=== PATIENT | male | born 1995 | race American Indian/Alaskan Native ===

== ENCOUNTER 2020-01-02 10:56 | Emergency (ER) | payer SELFPAY ==
[2020-01-02 11:14] VITALS: BP 130/83
[2020-01-02] MEDS ORDERED: ONDANSETRON 4 MG ODT TAB PO ONE (12:54)
[2020-01-02] MEDS ORDERED: HYOSCYAMINE SUBL 0.125 MG TAB SL ONE (12:54)
[2020-01-02] MEDS ORDERED: ALUM-MAG HYDROXIDE-SIMETHICONE 200-200-20MG/5ML ORAL LIQD 30 ML PO ONE (12:54)
[2020-01-02] MEDS ORDERED: FAMOTIDINE 20 MG TAB PO ONE (12:55)
[2020-01-02 13:42] LABS: Basophils % (Auto) 0.3 % (0.0-1.8); Eosinophils # (Auto) 0.1 K/mm3 (0.0-0.4); Hemoglobin 18.9 gm/dl (11.8-15.2); Lymphocytes # (Auto) 1.4 K/mm3 (1.2-5.4); Mean Corpuscular HGB Conc 34 % (32-34); Mean Corpuscular Volume 82 fl (84-94); Monocytes # (Auto) 0.5 K/mm3 (0.0-0.8); Monocytes % (Auto) 7.6 % (0.0-7.3); Platelet Count 217 K/mm3 (140-440); Red Cell Distribution Width 14.4 % (13.2-15.2)
[2020-01-02 13:52] LABS: Bilirubin,Urine NEG (Negative); Blood,Urine NEG (Negative); Color,Urine Yellow (Yellow); Mucus,Urine FEW /HPF; Protein,Urine <15 mg/dL mg/dL (Negative); Urobilinogen,Urine < 2.0 mg/dL (<2.0)
[2020-01-02 14:02] LABS: Amphetamine Screen,Urine Negative; Benzodiazepines Screen,Urine Negative; Cocaine Screen,Urine Negative; Methadone Screen,Urine Negative; Opiate Screen,Urine Negative
[2020-01-02 14:02] LABS: Alanine Aminotransferase 34 units/L (7-56); Albumin 4.8 g/dL (3.9-5); BUN/Creatinine Ratio 10; Blood Urea Nitrogen 9 mg/dL (9-20); Calcium 10.2 mg/dL (8.4-10.2); Hemolysis Index 23
--- NOTE | 2020-01-02 14:25 | Emergency Department Report ---
ED General Adult HPI - General Chief complaint: Medical Clearance Stated complaint: FEELING ILL/ABD Time Seen by Provider: 01/02/20 12:19 Source: patient Mode of arrival: Ambulatory Limitations: No Limitations - History of Present Illness Initial comments: Patient is a 24-year-old male who presents emergency room with complaints of upper abdominal discomfort that began 2 nights ago after he reports he took 2 pills of ecstasy. He states that that night after he took the ecstasy pills he began having rapid heartbeat vomiting and upper abdominal discomfort. He states that the rapid heartbeat and vomiting has since resolved. He states that he still just having some upper abdominal discomfort. He denies taking the pills in order to harm himself. He denies any SI, HI, hallucinations. He denies any diarrhea, fever, hematochezia, hematemesis, melena. He states he is having normal bowel movements. He denies any past medical history or allergies to medications. He endorses alcohol use and marijuana use and tobacco use. - Related Data Previous Rx's Medication Instructions Recorded Last Taken Type Famotidine [Pepcid] 40 mg PO QHS #30 tablet 01/02/20 Unknown Rx Mag Hydrox/Aluminum Hyd/Simeth 15 ml PO Q8HR #1 oral.susp 01/02/20 Unknown Rx [Maalox Advanced Suspension] Allergies Allergy/AdvReac Type Severity Reaction Status Date / Time No Known Allergies Allergy Unverified 01/02/20 11:13 ED Review of Systems ROS: Stated complaint: FEELING ILL/ABD Other details as noted in HPI Comment: All other systems reviewed and negative ED Past Medical Hx - Past Medical History Previous Medical History?: No - Surgical History Past Surgical History?: No - Social History Smoking Status: Current Every Day Smoker Substance Use Type: Alcohol - Medications Home Medications: Home Medications Medication Instructions Recorded Confirmed Last Taken Type Famotidine [Pepcid] 40 mg PO QHS #30 tablet 01/02/20 Unknown Rx Mag Hydrox/Aluminum Hyd/Simeth 15 ml PO Q8HR #1 oral.susp 01/02/20 Unknown Rx [Maalox Advanced Suspension] ED Physical Exam - General Limitations: No Limitations General appearance: alert, in no apparent distress - Head Head exam: Present: atraumatic, normocephalic - Eye Eye exam: Present: normal appearance - ENT ENT exam: Present: mucous membranes moist - Respiratory Respiratory exam: Present: normal lung sounds bilaterally. Absent: respiratory distress, wheezes, rales, rhonchi, stridor, chest wall tenderness, accessory muscle use, decreased breath sounds, prolonged expiratory - Cardiovascular Cardiovascular Exam: Present: regular rate, normal rhythm, normal heart sounds. Absent: systolic murmur, diastolic murmur, rubs, gallop - GI/Abdominal GI/Abdominal exam: Present: soft, normal bowel sounds. Absent: distended, tenderness, guarding, rebound, rigid - Neurological Exam Neurological exam: Present: alert, oriented X3 - Psychiatric Psychiatric exam: Present: normal affect, normal mood - Skin Skin exam: Present: warm, dry, intact ED Course Vital Signs 01/02/20 11:13 Temperature 72 F L Pulse Rate 82 Respiratory 18 Rate Blood Pressure 130/83 [Right] O2 Sat by Pulse 98 Oximetry ED Medical Decision Making - Lab Data Result diagrams: 01/02/20 13:07 01/02/20 13:07 Lab Results 01/02/20 01/02/20 01/02/20 Range/Units 13:07 13:07 13:07 WBC 6.2 (4.5-11.0) K/mm3 RBC 6.80 H (3.65-5.03) M/mm3 Hgb 18.9 H (11.8-15.2) gm/dl Hct 56.0 H (35.5-45.6) % MCV 82 L (84-94) fl MCH 28 (28-32) pg MCHC 34 (32-34) % RDW 14.4 (13.2-15.2) % Plt Count 217 (140-440) K/mm3 Lymph % (Auto) 22.0 (13.4-35.0) % [place] % (Auto) 7.6 H (0.0-7.3) % Eos % (Auto) 1.0 (0.0-4.3) % Baso % (Auto) 0.3 (0.0-1.8) % Lymph # (Auto) 1.4 (1.2-5.4) K/mm3 [place] # (Auto) 0.5 (0.0-0.8) K/mm3 Eos # (Auto) 0.1 (0.0-0.4) K/mm3 Baso # (Auto) 0.0 (0.0-0.1) K/mm3 Seg Neutrophils % 69.1 (40.0-70.0) % Seg Neutrophils # 4.3 (1.8-7.7) K/mm3 Sodium 137 (137-145) mmol/L Potassium 4.5 (3.6-5.0) mmol/L Chloride 96.6 L (98-107) mmol/L Carbon Dioxide 24 (22-30) mmol/L Anion Gap 21 mmol/L BUN 9 (9-20) mg/dL Creatinine 0.9 (0.8-1.3) mg/dL Estimated GFR > 60 ml/min BUN/Creatinine Ratio 10 % Glucose 73 L (75-100) mg/dL Calcium 10.2 (8.4-10.2) mg/dL Total Bilirubin 1.00 (0.1-1.2) mg/dL AST 22 (5-40) units/L ALT 34 (7-56) units/L Alkaline Phosphatase 71 (35-129) units/L Total Protein 8.3 H (6.3-8.2) g/dL Albumin 4.8 (3.9-5) g/dL Albumin/Globulin Ratio 1.4 % Lipase 15 (13-60) units/L Urine Color (Yellow) Urine Turbidity (Clear) Urine pH (5.0-7.0) Ur Specific [place] (1.003-1.030) Urine Protein (Negative) mg/dL Urine Glucose (UA) (Negative) mg/dL Urine Ketones (Negative) mg/dL Urine Blood (Negative) Urine Nitrite (Negative) Urine Bilirubin (Negative) Urine Urobilinogen (<2.0) mg/dL Ur Leukocyte Esterase (Negative) Urine WBC (Auto) (0.0-6.0) /HPF Urine RBC (Auto) (0.0-6.0) /HPF U Epithel Cells (Auto) (0-13.0) /HPF Urine Mucus /HPF Salicylates < 0.3 L (2.8-20.0) mg/dL Urine Opiates Screen Urine Methadone Screen Acetaminophen (10.0-30.0) ug/mL Ur Barbiturates Screen Ur Phencyclidine Scrn Ur Amphetamines Screen U Benzodiazepines Scrn Urine Cocaine Screen U Marijuana (THC) Screen Drugs of Abuse Note Plasma/Serum Alcohol (0-0.07) % 01/02/20 01/02/20 01/02/20 Range/Units 13:07 13:07 13:39 WBC (4.5-11.0) K/mm3 RBC (3.65-5.03) M/mm3 Hgb (11.8-15.2) gm/dl Hct (35.5-45.6) % MCV (84-94) fl MCH (28-32) pg MCHC (32-34) % RDW (13.2-15.2) % Plt Count (140-440) K/mm3 Lymph % (Auto) (13.4-35.0) % [place] % (Auto) (0.0-7.3) % Eos % (Auto) (0.0-4.3) % Baso % (Auto) (0.0-1.8) % Lymph # (Auto) (1.2-5.4) K/mm3 [place] # (Auto) (0.0-0.8) K/mm3 Eos # (Auto) (0.0-0.4) K/mm3 Baso # (Auto) (0.0-0.1) K/mm3 Seg Neutrophils % (40.0-70.0) % Seg Neutrophils # (1.8-7.7) K/mm3 Sodium (137-145) mmol/L Potassium (3.6-5.0) mmol/L Chloride (98-107) mmol/L Carbon Dioxide (22-30) mmol/L Anion Gap mmol/L BUN (9-20) mg/dL Creatinine (0.8-1.3) mg/dL Estimated GFR ml/min BUN/Creatinine Ratio % Glucose (75-100) mg/dL Calcium (8.4-10.2) mg/dL Total Bilirubin (0.1-1.2) mg/dL AST (5-40) units/L ALT (7-56) units/L Alkaline Phosphatase (35-129) units/L Total Protein (6.3-8.2) g/dL Albumin (3.9-5) g/dL Albumin/Globulin Ratio % Lipase (13-60) units/L Urine Color Yellow (Yellow) Urine Turbidity Clear (Clear) Urine pH 7.0 (5.0-7.0) Ur Specific [place] 1.008 (1.003-1.030) Urine Protein <15 mg/dl (Negative) mg/dL Urine Glucose (UA) Neg (Negative) mg/dL Urine Ketones 80 (Negative) mg/dL Urine Blood Neg (Negative) Urine Nitrite Neg (Negative) Urine Bilirubin Neg (Negative) Urine Urobilinogen < 2.0 (<2.0) mg/dL Ur Leukocyte Esterase Mod (Negative) Urine WBC (Auto) 38.0 H (0.0-6.0) /HPF Urine RBC (Auto) 3.0 (0.0-6.0) /HPF U Epithel Cells (Auto) < 1.0 (0-13.0) /HPF Urine Mucus Few /HPF Salicylates (2.8-20.0) mg/dL Urine Opiates Screen Urine Methadone Screen Acetaminophen 5.0 L (10.0-30.0) ug/mL Ur Barbiturates Screen Ur Phencyclidine Scrn Ur Amphetamines Screen U Benzodiazepines Scrn Urine Cocaine Screen U Marijuana (THC) Screen Drugs of Abuse Note Plasma/Serum Alcohol < 0.01 (0-0.07) % 01/02/20 Range/Units 13:39 WBC (4.5-11.0) K/mm3 RBC (3.65-5.03) M/mm3 Hgb (11.8-15.2) gm/dl Hct (35.5-45.6) % MCV (84-94) fl MCH (28-32) pg MCHC (32-34) % RDW (13.2-15.2) % Plt Count (140-440) K/mm3 Lymph % (Auto) (13.4-35.0) % [place] % (Auto) (0.0-7.3) % Eos % (Auto) (0.0-4.3) % Baso % (Auto) (0.0-1.8) % Lymph # (Auto) (1.2-5.4) K/mm3 [place] # (Auto) (0.0-0.8) K/mm3 Eos # (Auto) (0.0-0.4) K/mm3 Baso # (Auto) (0.0-0.1) K/mm3 Seg Neutrophils % (40.0-70.0) % Seg Neutrophils # (1.8-7.7) K/mm3 Sodium (137-145) mmol/L Potassium (3.6-5.0) mmol/L Chloride (98-107) mmol/L Carbon Dioxide (22-30) mmol/L Anion Gap mmol/L BUN (9-20) mg/dL Creatinine (0.8-1.3) mg/dL Estimated GFR ml/min BUN/Creatinine Ratio % Glucose (75-100) mg/dL Calcium (8.4-10.2) mg/dL Total Bilirubin (0.1-1.2) mg/dL AST (5-40) units/L ALT (7-56) units/L Alkaline Phosphatase (35-129) units/L Total Protein (6.3-8.2) g/dL Albumin (3.9-5) g/dL Albumin/Globulin Ratio % Lipase (13-60) units/L Urine Color (Yellow) Urine Turbidity (Clear) Urine pH (5.0-7.0) Ur Specific [place] (1.003-1.030) Urine Protein (Negative) mg/dL Urine Glucose (UA) (Negative) mg/dL Urine Ketones (Negative) mg/dL Urine Blood (Negative) Urine Nitrite (Negative) Urine Bilirubin (Negative) Urine Urobilinogen (<2.0) mg/dL Ur Leukocyte Esterase (Negative) Urine WBC (Auto) (0.0-6.0) /HPF Urine RBC (Auto) (0.0-6.0) /HPF U Epithel Cells (Auto) (0-13.0) /HPF Urine Mucus /HPF Salicylates (2.8-20.0) mg/dL Urine Opiates Screen Negative Urine Methadone Screen Negative Acetaminophen (10.0-30.0) ug/mL Ur Barbiturates Screen Negative Ur Phencyclidine Scrn Negative Ur Amphetamines Screen Negative U Benzodiazepines Scrn Negative Urine Cocaine Screen Negative U Marijuana (THC) Screen Positive Drugs of Abuse Note Disclamer Plasma/Serum Alcohol (0-0.07) % - Medical Decision Making Patient is a 24-year-old male who presents emergency room with complaints of upper abdominal discomfort that began 2 nights ago after he reports he took 2 pills of ecstasy. He states that that night after he took the ecstasy pills he began having rapid heartbeat vomiting and upper abdominal discomfort. He states that the rapid heartbeat and vomiting has since resolved. He states that he still just having some upper abdominal discomfort. He denies taking the pills in order to harm himself. He denies any SI, HI, hallucinations. He denies any diarrhea, fever, hematochezia, hematemesis, melena. He states he is having normal bowel movements. He denies any past medical history or allergies to medications. He endorses alcohol use and marijuana use and tobacco use. Vitals are stable, temperature was incorrectly reported by nursing staff, advised for them to please correct in computer. No abdominal tenderness on exam, no guarding, no rebound, no rigidity, normal bowel sounds. Labs are stable. UDS is positive for marijuana. UA shows evidence of white blood cells and leukocyte esterase. Patient states that he has been sexually active without protection, he denies any dysuria or testicular pain or swelling. Patient given Levsin, Maalox, Zofran, Pepcid and symptoms improved and patient was feeling much better. Discussed all findings with patient. Bacteria could likely be from an STD, patient states that he would like STD treatment, patient treated prophylactically for G/C with ceftriaxone and azithromycin, patient will be referred to the health department for full STD panel. Patient given prescription for Pepcid and Maalox. Discussed alcohol and drug cessation with patient. Symptoms could be related to a gastritis discussed the importance of follow-up with patient. Advised patient Please take medication as prescribed. Please follow-up with health department or clinic for full STD panel. Please have any partner tested and treated as well. Avoid sexual intercourse. Increase your water intake. Please avoid drug use and alcohol use. Follow-up with a primary care doctor. Return to emergency room for any new or worsening s ymptoms. - Differential Diagnosis gastritis, gastroenteritis, drug reaction, colitis, pancreatitis, SBO Critical care attestation.: If time is entered above; I have spent that time in minutes in the direct care of this critically ill patient, excluding procedure time. ED Disposition Clinical Impression: Upper abdominal pain, Bacteriuria, Polysubstance abuse Disposition: - TO HOME OR SELFCARE Is pt being admited?: No Does the pt Need Aspirin: No Condition: Stable Instructions: Gastritis (ED), Sexually Transmitted Diseases (ED), Safe Sex (ED), Abdominal Pain (ED), Polysubstance Abuse (ED) Additional Instructions: Please take medication as prescribed. Please follow-up with health department or clinic for full STD panel. Please have any partner tested and treated as well. Avoid sexual intercourse. Increase your water intake. Please avoid drug use and alcohol use. Follow-up with a primary care doctor. Return to emergency room for any new or worsening symptoms. [facility] Address: [address] [place] [id number] Prescriptions: Famotidine [Pepcid] 40 mg PO QHS #30 tablet Mag Hydrox/Aluminum Hyd/Simeth [Maalox Advanced Suspension] 15 ml PO Q8HR #1 oral.susp Referrals: PRIMARY CAREMD [Primary Care Provider] - 2-3 Days [facility] [Outside] - 2-3 Days ARIA CROWELL MD [Staff Physician] - 2-3 Days [facility] [Provider Group] - 2-3 Days Time of Disposition: 14:49 Print Language: MOHAWK
[2020-01-02 14:26] LABS: Cannabinoid Screen,Urine Positive
[2020-01-02] MEDS ORDERED: AZITHROMYCIN 250 MG TAB PO ONE (14:49)
[2020-01-02] MEDS ORDERED: LIDOCAINE-MPF (1%) 10 MG/1 ML VIAL 5 ML INFILTRATI ONE (14:49)
== END 2020-01-02 15:24 | disposition home or self-care (01) ==
LOC: ED 10:56
DX: R82.71 Bacteriuria (principal); F19.10 Other psychoactive substance abuse, uncomplicated; F17.200 Nicotine dependence, unspecified, uncomplicated; Z79.899 Other long term (current) drug therapy
CPT/HCPCS: 36415; 80053; 80307; 81001; 83690; 85025; 87086; 96372; 99283; J0696; 80320; G0480; Q0162